=== PATIENT | female | born 1970 | race Caucasian/White ===

== ENCOUNTER 2016-07-26 11:10 | Emergency (ER) | payer OTHER ==
[~2016-07-26] VITALS: Ht 157.5 cm; Wt 71.7 kg
[2016-07-26 11:56] VITALS: BP 130/82
== END 2016-07-26 11:56 | disposition home or self-care (01) ==
LOC: ED 11:10
DX: B02.9 Zoster without complications (principal); G89.29 Other chronic pain; R20.9 Unspecified disturbances of skin sensation